=== PATIENT | male | born 1990 | race Two or more races ===

== ENCOUNTER 2020-11-03 19:30 | Emergency (ER) | payer OTHER ==
[~2020-11-03] VITALS: Ht 170.2 cm; Wt 99.8 kg
[2020-11-03] MEDS ORDERED: VOLTAREN100 GM (19:44)
[2020-11-03] MEDS ORDERED: FLEXERYL (19:44)
== END 2020-11-03 23:59 | disposition home or self-care (01) ==
LOC: ER 19:30
DX: S80.02XA Contusion of left knee, initial encounter (principal); I16.0 Hypertensive urgency; I10 Essential (primary) hypertension; W18.09XA Striking against other object with subsequent fall, initial encounter; Y93.89 Activity, other specified; Y92.018 Other place in single-family (private) house as the place of occurrence of the external cause; Y99.8 Other external cause status